=== PATIENT | female | born 1950 | race Asian ===

== ENCOUNTER 2017-08-25 21:04 | Emergency (ER) | payer MEDICARE, OTHER ==
[~2017-08-25] VITALS: Ht 160 cm; Wt 59.9 kg
[~2017-08-25 21:04] MED LIST: IBUPROFEN600 MG ORAL; VICODIN 5-5001 EACH PO
[2017-08-25 21:20] VITALS: BP 153/71
--- NOTE | 2017-08-25 21:28 | Emergency Room Report ---
History of Present Illness General Chief Complaint: Female Urogenital Problems Source: Patient Present Illness [facility] This is a 67-year-old [place]cu[place]-speaking female with a history of high blood pressure. She presents with hematuria. Onset around 4 PM. Does have some dysuria but no pain. Also with urgency. No back pain. No nausea no vomiting. Not on any blood thinner. Never had this problem before. She took some over- the-counter [place] medication for cystitis without relief. Allergies: Coded Allergies: No Known Allergies (Unverified , 12/02/12) Patient History Past Medical History: see triage record, old chart reviewed Past Surgical History: none Pertinent Family History: none Social History: Denies: smoking Last Menstrual Period: none Now: No : 2 Para: 2 Immunizations: other Reviewed Nursing Documentation: PMH: Agreed; PSxH: Agreed Nursing Documentation-PMH Hx Cardiac Problems: No - rheumatoid arthritis Hx Hypertension: Yes Review of Systems Eye: Denies: eye pain, blurred vision ENT: Denies: ear pain, nose congestion, throat swelling Respiratory: Denies: cough, shortness of breath Cardiovascular: Denies: chest pain, palpitations Gastrointestinal: Denies: abdominal pain, diarrhea, nausea, vomiting Genitourinary: Reports: hematuria Musculoskeletal: Denies: back pain, joint pain Skin: Denies: rash Neurological: Denies: headache, numbness Endocrine: Denies: increased thirst, increased urine Hematologic/Lymphatic: Denies: easy bruising All Other Systems: negative except mentioned in HPI Physical Exam Vital Signs Date Time Temp Pulse Resp B/P (MAP) Pulse Ox O2 Delivery O2 Flow Rate FiO2 08/25/17 21:09 98.2 84 18 153/71 97 98.2 vitals with high blood pressure Sp02 EP Interpretation: reviewed, normal General Appearance: well appearing, no apparent distress, alert Head: normocephalic, atraumatic Eyes: bilateral eye PERRL, bilateral eye EOMI ENT: hearing grossly normal, normal pharynx Neck: full range of motion, supple, no meningismus Respiratory: chest non-tender, lungs clear, normal breath sounds Cardiovascular #1: regular rate, rhythm, no murmur Gastrointestinal: normal bowel sounds, non tender, no mass, no organomegaly, no bruit, non-distended Musculoskeletal: back normal, gait/station normal, normal range of motion Psychiatric: mood/affect normal Skin: warm/dry Medical Decision Making Diagnostic Impression: Primary Impression: Cystitis ER Course Patient with cystitis. No evidence of infected kidney stone. No acute abdomen. We'll discharge home. IV antibiotics given here. CT/MRI/US Diagnostic Results CT/MRI/US Diagnostic Results : Imaging Test Ordered: CT abdomen and pelvis Impression Read by radiologist. Moderate intrahepatic and extrahepatic biliary dilatation. Otherwise no acute process. Last Vital Signs Date Time Temp Pulse Resp B/P (MAP) Pulse Ox O2 Delivery O2 Flow Rate FiO2 08/25/17 21:09 98.2 84 18 153/71 97 98.2 Status: improved Disposition: HOME, SELF-CARE Condition: Stable Scripts Cephalexin* (KEFLEX*) 500 Mg Capsule 500 MG ORAL TID, #21 CAP 0 Refills Prov: JOANN PEARCE M.D. 08/25/17 Patient Instructions: Urinary Tract Infection Additional Instructions: Follow-up with your DrRosa in 7 days. Return if symptom worsen. JOANN PEARCE M.D. Aug 25, 2017 21:28
[2017-08-25 21:39] LABS: BASOPHILS % (AUTO) 0.6 % (0.0-2.0); EOSINOPHILS % (AUTO) 1.2 % (0.0-3.0); HEMATOCRIT 42.6 % (37.0-47.0); HEMOGLOBIN 14.5 G/DL (12.0-16.0); LYMPHOCYTES % (AUTO) 18.9 % (20.0-45.0); MEAN CORPUSCULAR VOLUME 92 FL (80-99); MONOCYTES % (AUTO) 5.2 % (1.0-10.0); NEUTROPHILS % (AUTO) 74.1 % (45.0-75.0); PLATELET COUNT 266 K/UL (150-450); RED BLOOD COUNT 4.65 M/UL (4.20-5.40); RED CELL DISTRIBUTION WIDTH 10.9 % (11.6-14.8); WHITE BLOOD COUNT 15.4 K/UL (4.8-10.8)
[2017-08-25 21:51] LABS: APPEARANCE,URINE TURBID; BILIRUBIN, URINE NEGATIVE (NEGATIVE); GLUCOSE, URINE (UA) NEGATIVE (NEGATIVE); KETONES,URINE NEGATIVE (NEGATIVE); LEUKOCYTE ESTERASE ,URINE 3+ (NEGATIVE); NITRITE,URINE POSITIVE (NEGATIVE); PH,URINE 6.5 (4.5-8.0); PROTEIN,URINE 4+ (NEGATIVE); UROBILINOGEN,URINE NORMAL MG/DL (0.0-1.0)
[2017-08-25 21:53] LABS: COLOR,URINE BROWN
[2017-08-25 21:57] LABS: ANION GAP 6 mmol/L (5-15); BLOOD UREA NITROGEN 22 mg/dL (7-18); CALCIUM 9.6 MG/DL (8.5-10.1); CARBON DIOXIDE 33 MMOL/L (21-32); CHLORIDE 102 MMOL/L (98-107); CREATININE 1.2 MG/DL (0.55-1.30); POTASSIUM 4.5 MMOL/L (3.5-5.1); SODIUM 141 MMOL/L (136-145)
[2017-08-25] MEDS ORDERED: cefTRIAXone 1 GM in NS 55 ML IVPB ONE (22:00)
[2017-08-25] MEDS ORDERED: KEFLEX500 MG ORAL (22:48)
[2017-08-25 22:58] VITALS: BP 149/91
--- NOTE | 2017-08-26 17:13 | Diagnostic Imaging Report ---
Indication: Reason For Exam: ABD PAIN Technique: Continuous helical scanning was performed without any contrast material from the diaphragms through the pelvis with specific request of the ordering physician. Axial, sagittal, and coronal images were generated. Dose: Total Dose Length Product - DLP [address] Dose Index - CTDIvol(s) 13.21 mGy. Automated exposure control was utilized for dose reduction. Comparison: None Findings: Lack of any contrast limits evaluation. There is some mild dependent atelectasis. Atelectasis or scarring is also present in the lingula. 2 tiny 3 mm nodules are noted subpleural in the left lower lobe. Liver demonstrates intrahepatic duct dilatation. Common bile duct is also dilated measuring 12 mm.. The gallbladder is normal. The spleen is normal. The pancreas is unremarkable. Adrenal glands are normal. The kidneys are normal. Calcification is noted in the aorta. The aorta is normal in caliber. Retroperitoneum is free of adenopathy. The appendix is normal. The bowel is normal caliber. Uterus is normal. No adnexal masses. Bladder is collapsed. There is a tiny fat-containing umbilical hernia. Impression: Dilated intrahepatic biliary ducts and dilated common bile duct. The etiology is not identified. Mild dependent atelectasis. Lingular scarring or atelectasis. 2 tiny subpleural nodules in the left lower lobe. No further follow-up necessary by Fleischner criteria. Tiny umbilical hernia containing only fat. Atherosclerotic change. Otherwise negative. The above report is concordant with preliminary reading by [employer] . The CT scanner at [facility] is accredited by the [employer] and the scans are performed using protocols designed to limit radiation exposure to as low as reasonably achievable to attain images of sufficient resolution adequate for diagnostic evaluation.
== END 2017-08-25 22:58 | disposition home or self-care (01) ==
LOC: EMR 21:39
DX: N30.90 Cystitis, unspecified without hematuria (principal); I10 Essential (primary) hypertension; M06.9 Rheumatoid arthritis, unspecified; R91.8 Other nonspecific abnormal finding of lung field; K42.9 Umbilical hernia without obstruction or gangrene
CPT/HCPCS: 36415; 74176; 80048; 81003; 85025; 87086; 87181; 96374; 96375; 99284; J0696